=== PATIENT | male | born 1990 | race Caucasian/White ===

== ENCOUNTER 2020-12-05 03:35 | Outpatient (CLI) | payer BC, SELFPAY ==
[2020-12-05 10:25] LABS: TSH (W/Ref FT4) 1.13 uIU/mL (0.36-3.74)
== END 2020-12-05 03:36 | disposition home or self-care (01) ==
LOC: LBO 03:35
PROVIDERS: PCP Nurse Practitioner Family; Visit Provider Nurse Practitioner Family
DX: Z13.29 Encounter for screening for other suspected endocrine disorder (principal)
CPT/HCPCS: 36415; 84443

== ENCOUNTER 2021-01-14 02:50 | Outpatient (CLI) | payer BC, SELFPAY ==
[2021-01-14 11:30] LABS: Source Nasal/Nares
[2021-01-14 16:43] LABS: COVID-19 PCR Negative (Negative)
== END 2021-01-14 02:51 | disposition home or self-care (01) ==
LOC: LBO 02:50
PROVIDERS: PCP Nurse Practitioner Family; Visit Provider Surgery
DX: Z20.822 Contact with and (suspected) exposure to COVID-19 (principal); Z01.818 Encounter for other preprocedural examination
CPT/HCPCS: 87635

== ENCOUNTER 2021-01-16 08:12 | Day surgery (SDC) | payer BC, SELFPAY ==
--- NOTE | 2021-01-16 06:47 | COLE_ITS ---
Date of service: 01/16/21 Time of Service: 09:55 Colonoscopy Report Date of procedure: 01/16/21 Pre-op diagnosis general: rectal bleeding Post-op diagnosis procedure note: same (internal hemorrhoids) Procedure: Colonoscopy under sedation Surgeon: Eri Chung Anesthesia Type: General:No Airway (ASA 2/ Sondra Martines CRNA) Estimated blood loss (mL): 0 Pathology: none sent Complications: None Disposition: same day Indications: The patient is here for Colonoscopy pre-op. He has no family history of colon cancer or inflammatory bowel disease. 1-2 year history of bright red blood following bowel movements. DDX Hemorrhoids vs Inflammatory Bowel Disease. Declined rectal exam today, he also declined when he saw his PCP. He was encouraged to ensure staying hydrated and if his symptoms worsen to call this office. He will be scheduled and he will also be called if any cancellations occur between now and that time.? -Discussed colonoscopy bowel prep as well as the procedure. Discussed possible complications of the procedure to include bleeding, pain, perforation, missed small lesion/polyp, sore throat, aspiration and adverse reaction to the medications. Questions were answered to patient?s satisfaction. No guarantees were implied or given.? Prep: Miralax/Dulcolax Procedure Start Time: 09:55 Procedure End Time: 10:13 Retraction Time: 11 minutes Findings: Internal hemorrhoids Grade 2 Procedure Description: After informed consent was obtained the patient was taken to the procedure room and placed in a left decubitous position. Monitors were applied and a time out was done. The patients name, date of , procedur e, allergies to medications and metal in their body was reviewed. The patient was then sedated. Once sedated and comfortable a rectal exam was done. External exam was normal. Internal exam revealed a normal sphincter tone and no palpable masses. The prostate felt smooth. The scope was then introduced and retro-flexed. Grade 2 internal hemorrhoids were identified on retroflexion. No polyps or masses were identified on retro- flexion. The scope was then advanced to the cecum without difficulty. The ileocecal vlave and appendiceal orifice were identified. The prep was good. The scope was then slowly retracted over 11 minutes back into the rectum. There were no polyps and no diverticulosis noted. The scope was removed and the patient was woken up and taken back to Same day surgery in stable condition. The patient tolerated the procedure well and there were no immediate complications. Follow up: The patient should follow up at age 51 unless they develop changes in bowel habits or other new gastrointestinal complaints.
--- NOTE | 2021-01-16 06:48 | PDOC.DSDIS_ITS ---
Discharge Plan Disposition Patient Disposition: HOME Condition: Good Discharge Details Reason For Visit: Colonoscopy Attending Provider: Eri Chung Primary Care Provider: Moshe Kennedy Home Meds and New Rx's Prescriptions: New hydrocortisone 2.5 % cream with perineal applicator 1 applic AL QD-BID PRNQty: 30 RF: 0 Continued buspirone 10 mg tablet 10 mg PO DAILY PRN (Reason: panic attack(s)) Qty: 30 RF: 0 acetaminophen [Tylenol] 325 mg Tablet 650 mg PO ONCE PRNRF: 0 Discontinued bisacodyl [Dulcolax (bisacodyl)] 5 mg tablet,delayed release (DR/EC) 5 mg PO ONCE Qty: 4 RF: 0 polyethylene glycol 3350 17 gram/dose powder 238 g PO ONCE Qty: 238 RF: 0 Discharge Instructions Instructions: Hemorrhoids (DC) Additional Instructions: Findings: Internal hemorrhoids Follow up: As needed if your hemorrhoids continue to bleed make an appointment to see me in the office. Please call if you develop: fevers >101.5 Nausea or Vomiting Abdominal pain that is not transient Rectal bleeding that is more then a tbsp A hard abdomen and inability to pass gas DAY SURGERY UNIT POST ENDOSCOPY INSTRUCTIONS Instructions for everyone who is given Anesthesia: For your safety, please do the following for the next 24 Hours: a. Do not drive or operate dangerous equipment b. Do not drink alcohol beverages or use any recreational drugs for the first 24 hours or while taking pain medications. The medications in your body may have a reaction that can be dangerous. c. Do not make any important decisions or sign any important papers 1. Generally there are no restrictions on your activity after a day or so has gone by, but you may feel a bit fatigued for a few days. 2. After you arrive home you may have a light meal and return to a normal diet as you can tolerate it without feeling sick to your stomach. 3. After surgery, you may feel pain or discomfort. This should be only transie nt, but if it persists please contact your doctor. 4. If there are any questions regarding the findings of your procedure, please feel free to contact your doctor. 6. If you are unable to contact your doctor with a problem, contact the hospital at [phone]. 7. Continue all your regular medications unless directed otherwise. I understand the above instructions and have no questions. Signature of Patient or Responsible Adult Escort Date/Time Name of Responsible Adult Escort Signature of Nurse Date/Time Activity:: Activity as Tolerated Diet:: high fiber diet Discharge Orders Discharge Orders: Discharge Order (Routine); Ordered 01/16/21 Ordered By: Eri Chung
[2021-01-16 08:32] VITALS: BP 121/72; PULSE 86; RESP 16; TEMP 36.7; O2SAT 100
--- NOTE | 2021-01-16 08:44 | W.ANESPRE ---
General Info Date of Service Date Performed: 01/16/21 Height: 5 ft 6.5 in Weight: 72.5 kg Body Mass Index (BMI): 25.4 Surgical Procedure: Operation Date: 01/16/21 10:05 Proposed Procedures Side Surgeon p Colonoscopy Eri Chung MD Meds Allergies and Home Medications Allergies Allergy/AdvReac Type Severity Reaction Status Date / Time No Known Allergies Allergy Verified 01/16/21 08:37 Home Medication Medication Instructions Recorded buspirone 10 mg tablet 10 mg PO DAILY PRN #30 tab 12/27/20 bisacodyl 5 mg tablet,delayed 5 mg PO ONCE #4 tab 01/03/21 release polyethylene glycol 3350 17 238 g PO ONCE #238 g 01/03/21 gram/dose oral powder acetaminophen [Tylenol] 650 mg PO ONCE PRN 01/16/21 Current Visit Medications: Current Medications Generic Name Dose Route Start Last Admin Trade Name Freq PRN Reason Stop Dose Admin Hyoscyamine Sulfate 0.125 mg 01/16/21 06:49 Hyoscyamine 0.125 Mg Sl/Oral/Chew SL DIRECTED PRN Ringer's Solution 1,000 mls @ 80 mls/hr 01/16/21 06:00 IV 02/14/21 23:59 INFUSION TABATHA IV Miscellaneous Supplies 1 each 01/16/21 06:00 Iv Access IV 02/14/21 23:59 DIRECTED TABATHA Ondansetron HCl 4 mg 01/16/21 06:49 Ondansetron 4 Mg/2 Ml Vial IVP Q4H PRN PRN Nausea / Vomiting Sodium Chloride 0 ml 01/16/21 06:00 Normal Saline Flush 10 Ml Syr IV 02/14/21 23:59 PRN PRN Sodium Chloride 0 ml 01/16/21 06:00 Normal Saline 10 Ml Vial IJ 02/14/21 23:59 DIRECTED PRN Sterile Water 0 ml 01/16/21 06:00 Water,Injection,Sterile 10 Ml Vial IJ 02/14/21 23:59 DIRECTED PRN PFSH Active Problems Active Problems: Problem Status Onset Code Thyroid disorder screening Z13.29 Blood in stool K92.1 Medical History Medical History History of panic attacks Surgical History Surgical History (Updated 01/16/21 @ 08:41 by Bharati Stinson) Hx of wisdom tooth extraction Tobacco Smoking/Tobacco Use Status: Never Alcohol Alcohol Intake: current Alcohol intake frequency: holidays/special occasions only Substance Use Substance use: Never Substance use type: does not use Vital Signs and Lab Results Vital Signs Most Recent Vital Signs in EMR: Most Recent Vital Signs Temp Pulse Resp BP Pulse Ox 36.7 C 86 16 121/72 100 01/16/21 08:32 01/16/21 08:32 01/16/21 08:32 01/16/21 08:32 01/16/21 08:32 Lab Results Result Diagrams: 01/16/21 08:42 01/16/21 08:42 Blood Type / Crossmatch: No Data to Display Complete Blood Count: White Blood Count 4.77 10^3/uL (4.4-10.8) 01/16/21 08:42 01/16/21 Red Blood Count 5.31 10^6/uL (4.36-5.78) 01/16/21 08:42 01/16/21 Hemoglobin 15.9 g/dL (13.5-17.5) 01/16/21 08:42 01/16/21 Hematocrit 45.6 % (40.0-50.0) 01/16/21 08:42 01/16/21 Platelet Count 228 10^3/uL (130-400) 01/16/21 08:42 01/16/21 Complete Metabolic Panel: Sodium Level Pending 01/16/21 08:42 01/16/21 Potassium Level Pending 01/16/21 08:42 01/16/21 Chloride Level Pending 01/16/21 08:42 01/16/21 Carbon Dioxide Level Pending 01/16/21 08:42 01/16/21 Blood Urea Nitrogen Pending 01/16/21 08:42 01/16/21 Creatinine Pending 01/16/21 08:42 01/16/21 Calcium Level Pending 01/16/21 08:42 01/16/21 Glucose Level Pending 01/16/21 08:42 01/16/21 Liver Function Panel: No Data to Display Coagulation Panel: No Data to Display Cardiac Panel: No Data to Display Arterial Blood Gas: No Data to Display Venous Blood Gas: No Data to Display Pancreas Panel: No Data to Display Thyroid Panel: No Data to Display Infectious Disease: Coronavirus (COVID-19)(PCR) Negative (Negative) 01/14/21 10:48 01/14/21 Coronavirus 2019 Source Nasal/nares 01/14/21 10:48 01/14/21 Blood Cultures: No Data to Display Toxicology Panel: No Data to Display Anesthesia Assessment and Plan Anesthesia History Personal History: No History of Anesthesia Complications Family History: No Family History of Anesthesia Complications Exercise Tolerance Exercise Tolerance: Metabolic Equivalents>4 Pertinent Negatives Pertinent Negatives: No Symptoms of GERD, No Major Cardiovascular Symptoms or Complaints and No Major Pulmonary Symptoms or Complaints Cardiac & Pulmonary Exam Cardiac Exam: Normal S1/S2 Heart Sounds Pulmonary Exam: Clear Bilateral Breath Sounds Airway Exam Known Difficult Airway: No Mallampati Class: 1 Mouth Opening: Normal (> 3cm) Thyromental Distance: Greater than 3 cm Neck Range of Motion: Full ROM Neck Circumference: Normal Teeth Condition: Normal Dentition ASA Classification ASA Score: ASA 2 Emergency Case?: No NPO Status NPO Status: NPO Clears >2 hours, Solids >8 hours Anesthesia Plan Resuscitation Status: Full Code Anesthesia Technique: General Anesthesia Airway Planned: Natural Airway Monitors Used: Standard Monitors
[2021-01-16 08:50] LABS: Abs Immature Grans 0.03 10^3/uL (0.0-0.06); Absolute Basophil Count 0.03 10^3/uL (0.0-0.2); Absolute Lymphocyte Count 1.33 10^3/uL (1.2-3.4); Absolute Monocyte Count 0.47 10^3/uL (0.1-0.8); Absolute Neutrophil Count 2.71 10^3/uL (1.2-6.7); Basophils % 0.6; Eosinophils % 4.2; HCT 45.6 % (40.0-50.0); HGB 15.9 g/dL (13.5-17.5); Immature Grans % 0.6; Lymphocytes % 27.9; MCH 29.9 pg (27.0-33.0); MCHC 34.9 % (32.0-36.0); MCV 85.9 fL (80-95); MPV 8.9 fL (8.0-11.0); Monocytes % 9.9; Neutrophils % 56.8; Nucleated RBC 0 %; Platelet Count 228 10^3/uL (130-400); RBC 5.31 10^6/uL (4.36-5.78); RDW 12.4 % (11.8-14.1); RDW-SD 38.8 fL; WBC 4.77 10^3/uL (4.4-10.8)
[2021-01-16] MEDS: Lactated Ringers 1,000 ML 80 ML IV (08:59)
[2021-01-16 09:01] LABS: BUN 14 mg/dL (7-18); CREATININE 1.1 mg/dL (0.70-1.30); Calcium 9.5 mg/dL (8.5-10.1); Chloride 103 mmol/L (98-107); Glucose 91 mg/dL (74-106); Potassium 3.8 mmol/L (3.5-5.1); Sodium 140 mmol/L (136-145)
[2021-01-16 09:06] VITALS: BMI 25.4
[2021-01-16 10:20] VITALS: BP 87/53; PULSE 76; RESP 18; TEMP 36.5; O2SAT 95
--- NOTE | 2021-01-16 10:23 | W.ANESPOSTOP ---
Postoperative Evaluation Date, Time and Location Date Performed: 01/16/21 Time Performed: 10:23 Patient Location: Day Surgery Unit Vital Signs Most Recent Imported Vital Signs: Most Recent Vital Signs Temp Pulse Resp BP Pulse Ox 36.7 C 86 16 121/72 100 01/16/21 08:32 01/16/21 08:32 01/16/21 08:32 01/16/21 08:32 01/16/21 08:32 Most Recent Manually Entered Vital Signs: Adult Blood Pressure: 87/53 Heart Rate: 78 Respirations: 20 Oxygen Saturation (%): 96 Temperature (C): 36.5 C Pain Score (0-10 Scale): 0 Pain Score Most Recent Pain Score: Most Recent Pain Score Pain Level 0 01/16/21 08:32 Assessment Mental Status: Arousable with meaningful communication Airway and Respiratory Function: Patent airway with normal (patient baseline) respiratory exam Cardiovascular Function: Hemodynamically Stable Hydration Status: Adequately Hydrated Nausea & Vomiting: No Nausea or Vomiting Pain: Pt. Denies Any Pain Peripheral Nerve Block: Patient did not receive a nerve block
[2021-01-16 10:24] VITALS: BP 87/53; PULSE 78; RESP 20; TEMPC 36.5; O2SAT 96
[2021-01-16 10:48] VITALS: BP 107/71; PULSE 80; RESP 18; TEMP 36.4; O2SAT 98
== END 2021-01-16 11:37 | disposition home or self-care (01) ==
LOC: SUR 08:12
PROVIDERS: PCP Nurse Practitioner Family; Visit Provider Surgery
PROC: 0DJD8ZZ Inspection of Lower Intestinal Tract, Via Natural or Artificial Opening Endoscopic (ICD-10-PCS; CPT 45378; principal; 2021-01-16 10:00)
DX: K64.8 Other hemorrhoids (principal)
CPT/HCPCS: 45378; 36415; 80048; 85025; J2001

== ENCOUNTER 2023-05-12 11:02 | Day surgery (SDC) | payer BC, SELFPAY ==
--- NOTE | 2023-05-11 17:09 | ROE_ITS ---
Date of service: 05/12/23 Time of Service: 12:30 Operative Note Operative Note DATE OF PROCEDURE: 05/12/23 PRE-OP DIAGNOSIS: Rectal bleeding/history of hemorrhoids POST-OP DIAGNOSIS: same PROCEDURE: Banding of internal hemorrhoids x3 columns and instillation of Exparel for pain control SURGEON: Stephany Thomas ANESTHESIA TYPE: General:No Airway Refer to Anesthesia Record ESTIMATED BLOOD LOSS: 1 PATHOLOGY: none sent COMPLICATIONS: None Patient was transported to: same day Patient's condition: stable Procedure Description: After informed consent was obtained, explaining the risks and benefits of the procedure including but not limited to: Bleeding, infection, fistula or abscess, chronic pain or numbness or loss of control of the sphincter. Patient understands the bands will fall off in about 3 to 5 days and that there may be some bleeding when this occurs. The patient was taken to the procedure room and placed in a left decubitous position. Monitors were applied and a time out was done. The patients name, date of , procedure, allergies to medications and metal in their body was reviewed. The patient was then sedated. Once s edated and comfortable a rectal exam was done. External exam was normal. Internal exam revealed a normal sphincter tone and no palpable masses. The prostate normal. The scope was then introduced and retrofelexed. Grade 2 internal hemorrhoids times all 3 columns were identified. Digital anal rectal exam was performed prior to beginning this procedure. There is no signs of any active bleeding or thrombosis. Each column was grabbed with a suction supervisor product inspection and latex bands were applied in all 3 columns. Repeat visualization shows no bleeding. 10 cc of Exparel is instilled into each column for pain control. No bleeding is noted. Patient tolerated procedure well without complication and transferred to same- day surgery in stable condition The patient tolerated the procedure well and there were no immediate complications.
--- NOTE | 2023-05-11 17:10 | PDOC.DSDIS_ITS ---
Date of service: 05/12/23 Time of Service: 12:40 Discharge Plan Disposition Patient Disposition: Home Condition: Good Discharge Details Reason For Visit: Hemorrhoid banding Attending Provider: Stephany Thomas Primary Care Provider: Moshe Kennedy Home Meds and New Rx's Prescriptions: New metaxalone 800 mg tablet 800 mg PO TID PRNQty: 50 0RF Continued triamcinolone acetonide 0.1 % cream 1 applic topical BID Qty: 30 4RF acetaminophen [Tylenol] 325 mg Tablet 650 mg PO ONCE PRN Changed Fiber Supplement (inulin) 2 gram tablet,chewable 3 tab PO DAILY Qty: 0 0RF Discharge Instructions Additional Instructions: Home Care Instructions after Rectal Surgery Pain control:? Ibuprofen 600mg 6hrs (take w/ food. Do not take on an empty stomach) and Tylenol 1000mg by mouth (ibuprofen 400-600mg) every 8 hours.? Do not take if you have ulcers or sensitivity to aspirin.? Do not take Tylenol if you have hepatitis or liver failure. Alternate the Tylenol and ibuprofen.? Take pain meds continuously for the first 72hrs.? After 72hrs, you can take as needed if you are having pain.? Robaxin/metoxalone for muscle spasms/pain >7. How to prevent constipation: The first bowel movement after surgery will be painful. Do not let yourself get constipated. Stay on a stool softener for the first two weeks after surgery. ?It is recommended that you use a fiber supplement (Metamucil, Citrucel) daily (1 tablespoon in 8 oz of water). If you do not have a bowel movement daily, use Miralax. You may have bleeding or drainage after rectal surgery; especially when you move your bowels. Use a sanitary napkin to collect the discharge. If you are passing large clots or having to change the pad more than every 4 hours, call the clinic or go to the ER. You may experience spasms in the rectal muscles. This is normal after surgery and last for about two weeks. They can become more intense with bowel movements. The best remedy is to soak in a bathtub of plain warm water- no Epsom salts, essential oil or soap.? It takes about 10 minutes further the spasm to stop.? You may want to do this after BM as well. It is ok to shower. Avoid soap on the surgical area. Use a pillow to sit on. Follow a mild bland diet. Avoid alcohol, spicy food, citrus, and tomatoes. Avoid strenuous activity (running, jogging, and power walking, swimming, weight lifting) for one week. No lifting over 20 pounds for 1 week. Activity:: See above Shower/Bathe:: 24 hours Diet:: [place] diet Discharge Orders Discharge Orders: Discharge Order (Routine); Ordered 05/12/23 Ordered By: Stephany Thomas DS: Diagnosis Discharge Diagnosis (1) Anxiety: Status: Chronic (2) Bleeding grade II hemorrhoids: Status: Acute Asessment and Plan: The patient is doing well post-op from their hemorrhoid banding on the back.? They are having no nausea or vomiting. They are tolerating liquids and a snack. The pt is not having any chest pain or SOB.? Their pain is adequately controlled. They have been able to urinate.? ?HEENT:? no eye pain/drainage/redness/swelling. Mild sore throat ?Cardio- NSR, no chest pain, BP stable- see VS record ?Pulm: no sob or productive cough. No hemoptysis ?Incision- dressing is c/d/i w/ no excessive bleeding or drainage ?I discussed with the patient the findings at the time of surgery and the patient?s progress. ?We reviewed expectations at home; what the patient could expect for recovery time, and in the post-operative period.? We discussed the importance of walking to avoid blood clots and pneumonia.? We discussed and reviewed the patient's post-operative wound care and dressing needs.?? We reviewed their step-parr pain management plan, Rx called to the pharmacy of their choice.? We reviewed activity and limitations-see discharge instructions. We reviewed warning signs, and when to seek medical attention- see d/c instructions.?? Patient was given a postoperative follow-up appointment. Patient verbalized understanding of their postoperative instructions, how do to take care of themselves and their incision, and the pain management plan. Please see discharge instructions.? (3) Internal hemorrhoids with other complication: Status: Acute (4) Blood in stool: Status: Acute (5) History of panic attacks:
[2023-05-12 11:22] VITALS: BP 131/75; PULSE 78; RESP 18; TEMP 36.8; O2SAT 100
[2023-05-12] MEDS: Lactated Ringers 1,000 ML 80 ML IV (11:29)
--- NOTE | 2023-05-12 12:11 | ANES.PREOP_ITS ---
General Info Date of Service Date Performed: 05/12/23 Height: 5 ft 6 in Weight: 76.7 kg Body Mass Index (BMI): 27.3 Surgical Procedure: Operation Date: 05/12/23 12:55 Proposed Procedure Side Surgeon p Internal Hemorrhoid Banding X3 Columns Stephany Thomas DO Actual Procedure Side Surgeon p Internal Hemorrhoid Banding X3 Columns Not Applicable Stephany Thomas DO Pre-Op Diagnosis Post-Op Diagnosis Hemorrhoid banding Meds Allergies and Home Medications Allergies Allergy/AdvReac Type Severity Reaction Status Date / Time No Known Allergies Allergy Verified 05/12/23 11:26 Home Medication Medication Instructions Recorded acetaminophen 325 mg tablet 650 mg PO ONCE PRN 01/16/21 (Tylenol) triamcinolone acetonide 0.1 % 1 applic topical BID #30 grams 01/22/23 topical cream inulin-sorbitol 2 gram chewable 1 tab PO DAILY 04/23/23 tablet (Fiber Supplement (inulin)) Current Visit Medications: Current Medications Generic Name Dose Route Start Last Admin Trade Name Freq PRN Reason Stop Dose Admin Hyoscyamine Sulfate 0.125 mg 05/12/23 09:29 Hyoscyamine 0.125 Mg Sl/Oral/Chew SL 06/11/23 09:28 DIRECTED PRN Ringer's Solution 1,000 mls @ 80 mls/hr 05/12/23 06:00 05/12/23 11:29 IV 06/10/23 23:59 80 mls/hr INFUSION TABATHA Administration IV Miscellaneous Supplies 1 each 05/12/23 06:00 Iv Access IV 06/10/23 23:59 DIRECTED TABATHA Ondansetron HCl 4 mg 05/12/23 09:29 Ondansetron 4 Mg/2 Ml Vial IVP 06/11/23 09:28 Q4H PRN PRN Nausea / Vomiting Sodium Biphosphate/Sodium Phosphate 266 ml 05/12/23 06:00 Na Phosphate Enema 133 Ml Btl NC 05/12/23 23:59 PREOP TABATHA Sodium Chloride 0 ml 05/12/23 06:00 Normal Saline Flush 10 Ml Syr IV 06/10/23 23:59 PRN PRN Sodium Chloride 0 ml 05/12/23 06:00 Normal Saline 10 Ml Vial IJ 06/10/23 23:59 DIRECTED PRN Sterile Water 0 ml 05/12/23 06:00 Water,Injection,Sterile 10 Ml Vial IJ 06/10/23 23:59 DIRECTED PRN [facility] Active Problems Active Problems: Problem Status Onset Code Anxiety F41.9 Bleeding grade II hemorrhoids K64.1 Internal hemorrhoids with other complication K64.8 Thyroid disorder screening Z13.29 Blood in stool K92.1 Eczema of both hands L30.9 Medical History Medical History History of panic attacks Surgical History Surgical History History of colonoscopy (~12/2020) Hx of wisdom tooth extraction Tobacco Smoking/Tobacco Use Status: Never Alcohol Alcohol Intake: current Alcohol intake frequency: holidays/special occasions only Substance Use Substance use: Never Substance use type: does not use Details: alcohol: unknown Vital Signs and Lab Results Vital Signs Most Recent Vital Signs in EMR: Most Recent Vital Signs Temp Pulse Resp BP Pulse Ox 36.8 C 78 18 131/75 100 05/12/23 11:22 05/12/23 11:22 05/12/23 11:22 05/12/23 11:22 05/12/23 11:22 Lab Results Blood Type / Crossmatch: No Data to Display Complete Blood Count: No Data to Display Complete Metabolic Panel: No Data to Display Liver Function Panel: No Data to Display Coagulation Panel: No Data to Display Cardiac Panel: No Data to Display Arterial Blood Gas: No Data to Display Venous Blood Gas: No Data to Display Pancreas Panel: No Data to Display Thyroid Panel: No Data to Display Infectious Disease: No Data to Display Blood Cultures: No Data to Display Toxicology Panel: No Data to Display Anesthesia Assessment and Plan Anesthesia History Personal History: No History of Anesthesia Complications Family History: No Family History of Anesthesia Complications Exercise Tolerance Exercise Tolerance: Metabolic Equivalents>4 Cardiac & Pulmonary Exam Cardiac Exam: Normal S1/S2 Heart Sounds Pulmonary Exam: Clear Bilateral Breath Sounds Implantable Cardiac Device Does patient have a Pacemaker or an ICD?: No Airway Exam Known Difficult Airway: No Mallampati Class: 1 Mouth Opening: Normal (> 3cm) Thyromental Distance: Greater than 3 cm Neck Range of Motion: Full ROM Neck Circumference: Normal Teeth Condition: Normal Dentition ASA Classification ASA Score: ASA 2 Emergency Case?: No NPO Status NPO Status: NPO Clears >2 hours, Solids >8 hours Anesthesia Plan Resuscitation Status: Full Code Anesthesia Technique: General Anesthesia Airway Planned: Natural Airway Monitors Used: Standard Monitors Preoperative Comments:: 33 yo for hemorrhoid banding. Sig PMHx: denies major. never smoker, occ EtOH. Previous Anes: - colo, prop, natural airway no issues.
[2023-05-12 12:13] VITALS: BMI 27.3
[2023-05-12] MEDS: Bupivacaine LIPOSOME/PF 133 MG/10 ML VIAL IJ (12:22)
[2023-05-12 12:30] VITALS: BP 119/75; PULSE 70; RESP 18; TEMP 36.4; O2SAT 98
--- NOTE | 2023-05-12 12:49 | W.ANESPOSTOP ---
Postoperative Evaluation Date, Time and Location Date Performed: 05/12/23 Time Performed: 12:49 Patient Location: Day Surgery Unit Vital Signs Most Recent Imported Vital Signs: Most Recent Vital Signs Temp Pulse Resp BP Pulse Ox 36.4 C L 70 18 119/75 98 05/12/23 12:30 05/12/23 12:30 05/12/23 12:30 05/12/23 12:30 05/12/23 12:30 Pain Score Most Recent Pain Score: Most Recent Pain Score Pain Level 0 05/12/23 12:30 Assessment Mental Status: Awake (Alert & Oriented to Patient Baseline) Airway and Respiratory Function: Patent airway with normal (patient baseline) respiratory exam Cardiovascular Function: Hemodynamically Stable Hydration Status: Adequately Hydrated Nausea & Vomiting: No Nausea or Vomiting Pain: Pt. Denies Any Pain Peripheral Nerve Block: Patient did not receive a nerve block
[2023-05-12] MEDS: Methocarbamol 750 MG TAB PO (13:01)
[2023-05-12 13:04] VITALS: BP 122/76; PULSE 56; RESP 18; TEMP 36.6; O2SAT 100
== END 2023-05-12 13:45 | disposition home or self-care (01) ==
PROVIDERS: PCP Nurse Practitioner Family; Visit Provider Surgery
PROC: (CPT 46221; principal; 2023-05-12 12:45)
DX: K64.1 Second degree hemorrhoids (principal); F41.9 Anxiety disorder, unspecified
CPT/HCPCS: 46221; J1885; J2704

== ENCOUNTER 2023-07-14 00:51 | Emergency (ER) | payer BC, SELFPAY ==
[2023-07-14 00:54] VITALS: BP 150/84; PULSE 91; RESP 16; TEMP 36.9; O2SAT 100
--- NOTE | 2023-07-14 01:12 | W.ED.GENAD ---
Discharge Plan Disposition Patient Disposition: Home Discharge Details Chief Complaint: Laceration Clinical Impression: Laceration of right wrist Primary Care Provider: Moshe Kennedy ED Provider: Chicho Perez Home Meds and New Rx's Prescriptions: No Action triamcinolone acetonide 0.1 % ointment 1 applic topical DAILY 7 Days Qty: 80 1RF acetaminophen [Tylenol] 325 mg Tablet 650 mg PO ONCE PRN Fiber Supplement (inulin) 2 gram tablet,chewable 3 tab PO DAILY Qty: 0 0RF Discharge Instructions Instructions: Care For Your Absorbable Stitches (ED) Additional Instructions: Please keep the area clean and dry. Monitor closely for any redness, drainage or discharge. Absorbable sutures will come out on their own in 10 to 12 days. If they have not you can gently rub warm soapy water on the area to help them come off. If you come back to the emergency department here it will be free of charge for the suture removal. For long-term scar cosmesis, please make sure to avoid any sun to the area for the next year. Apply moisturizer or vitamin E to the area twice daily for the next 12 months for the best chance of wound/scar medication. Please take a daily multivitamin as well as this can help in wound healing. If you notice any worsening of your symptoms, or any new symptoms such as vomiting, diarrhea, fever, chills, shortness of breath, chest pain, numbness, weakness, or fainting , please return immediately to the emergency department for reevaluation. Please follow up with your primary care provider as soon as possible for reassessment and reevaluation. As always, it was a pleasure participating in your medical care today. Referrals: Moshe Kennedy, [employer] [Primary Care Provider] - Medical Decision Making Pleasant 33-year-old male with no significant past medical history whose tetanus was updated in 2018 presents today for right wrist laceration. He is right-hand dominant. Patient states that he was moving metal within the last hour or so when the metal slipped and hit his wrist. He denies any homicidal or suicidal ideations. He denies any numbness or tingling. No other complaints at this time. Pain is made worse with palpation. No difficulty with movement. Metal was clean otherwise. Exam demonstrates a 5 cm linear laceration on the right wrist. No vascular structures are involved, no tendon involvement. Somewhat superficial. The area was cleaned and extensively irrigated. No foreign bodies were noted. The area was sutured with 5 simple interrupted sutures. Patient tolerated this well. Dermabond was applied over top. Single 24-hour course of antibiotics will be given for infection prevention. Tetanus is up-to-date. Discussed red flags for which to return. I have extensively reviewed the treatment plan and discharge instructions with the patient. I have addressed all patient concerns at this time. The patient was made aware of what symptoms to monitor for that would warrant a return to the emergency department. Discussed the plan with the patient, they demonstrate verbal understanding and agreement with our assessment and plan at this time. The documentation in this chart was dictated using [employer] dictation software. Please excuse any dictation errors. HPI General Date/Time Provider Initiated Documentation: 07/14/23 00:52. HPI Narrative: Pleasant 33-year-old male with no significant past medical history whose tetanus was updated in 2018 presents today for right wrist laceration. He is right-hand dominant. Patient states that he was moving metal within the last hour or so when the metal slipped and hit his wrist. He denies any homicidal or suicidal ideations. He denies any numbness or tingling. No other complaints at this time. Pain is made worse with palpation. No difficulty with movement. Metal was clean otherwise. Related Data Home Medications Medication Instructions Recorded Confirmed acetaminophen 325 mg tablet 650 mg PO ONCE PRN 01/16/21 07/14/23 (Tylenol) inulin-sorbitol 2 gram chewable 3 tab PO DAILY #0 tabs 05/12/23 07/14/23 tablet (Fiber Supplement (inulin)) triamcinolone acetonide 0.1 % 1 applic topical DAILY 7 days #80 06/26/23 07/14/23 topical ointment grams Previous Rx's Medication Instructions Recorded inulin-sorbitol 2 gram chewable 3 tab PO DAILY #0 tabs 05/12/23 tablet (Fiber Supplement (inulin)) triamcinolone acetonide 0.1 % 1 applic topical DAILY 7 days #80 06/26/23 topical ointment grams Allergies Allergy/AdvReac Type Severity Reaction Status Date / Time No Known Allergies Allergy Verified 07/14/23 01:01 General Stated Complaint: Laceration SARITA: 4 Review of Systems All systems reviewed & are unremarkable except as noted in HPI and below PFSH All Active Problems Laceration of right wrist (Acute) Eczema (Acute) Anxiety (Chronic) Thyroid disorder screening (Acute) Eczema of both hands (Acute) Medical History History of panic attacks Surgical History Hemorrhoids, internal (~05/2023) Banding done in May 2023 History of colonoscopy (~12/2020) Hx of wisdom tooth extraction Social History Smoking/Tobacco Use Status: Never Smoking risk assessment performed?: Yes Alcohol Intake: current Alcohol Intake frequency: holidays/special occasions only Drug use: Never Substance use type: does not use Details: alcohol: unknown Housing: apartment Current gender identity: male Do you feel safe at home: Yes Do you feel safe in your relationship?: Yes Exam Narrative Exam Narrative: 1.Const: Well-nourished, Well-developed, appearing stated age 2.Eyes: PERRL, no conjunctival injection, and symmetrical lids. 3.ENT: Atraumatic external nose and ears. Moist MM. Neck: Symmetric, trachea midline, No thyromegaly. 4.CVS: +S1/S2, No murmurs or gallops. Peripheral pulses 2+ and equal in all extremities. Brisk capillary refill in all extremities. 5.RESP: Unlabored respiratory effort. Clear to auscultation bilaterally. No wheezes rales or rhonchi 6.GI: Soft, Nontender/Nondistended, No hepatosplenomegaly. No guarding or rebound. 7.MSK: Normocephalic/Atraumatic, Extremities w/o deformity or ttp No cyanosis or clubbing, Normal movement of all extremities Right hand: Symmetrically palpable radial and ulnar pulses. Capillary refill less than 2 seconds to all digits. Intact sensation to light touch of the radial, median and ulnar nerves demonstrated by testing in the dorsal web space of the thumb, the distal palmar aspect of the index finger, and the lateral surface of the fifth finger. 2 point discrimination intact to 5mm (up to 6mm can be normal in digits 3-5) of discrimination in the affected digit. 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 Intact recurrent median nerve as demonstrated by ability to move thumb fully through opposition, abduction and flexion. No snuffbox tenderness. 8.Skin: Warm, Dry. Patient's right wrist demonstrates a 5 cm linear laceration on the ventral aspect of the right wrist. Superficial in nature, does not go down to the tendons or ligaments. Only adipose is exposed. No active bleeding. 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 Sensation grossly intact, no focal neurologic deficits. 10.Psych: (AAO) x3. Appropriate mood and affect Course Vital Signs Vital signs: Vital Signs Temperature 36.9 C 07/14/23 00:54 Pulse 91 H 07/14/23 00:54 Respiratory Rate 16 07/14/23 00:54 Blood Pressure 150/84 H 07/14/23 00:54 Pulse Oximetry 100 07/14/23 00:54 Temperature 36.9 C 07/14/23 00:54 Temperature Source Oral 07/14/23 00:54 Pulse 91 H 07/14/23 00:54 Respiratory Rate 16 07/14/23 00:54 Respiratory Effort Normal, Non-Labored 07/14/23 01:02 Blood Pressure 150/84 H 07/14/23 00:54 Blood Pressure Position Sitting 07/14/23 00:54 Pulse Oximetry 100 07/14/23 00:54 Oxygen Delivery Method Room Air 07/14/23 00:54 Oxygen Flow Rate 0 07/14/23 00:54 Procedures Laceration Laceration 1: Site: upper extremity Side (If applicable): right Size (cm): 5 Description: linear Depth: simple, single layer Local Anesthetic: Lidocaine 1% and with Epi Amount of anesthesia used (mL): 4 Pre-repair: wound explored, irrigated extensively and deep structures intact Skin layer closed with: other (Chromic gut) Size (cm): 5-0 Number of sutures: 5 Technique: simple, interrupted
[2023-07-14] MEDS: Cephalexin 500 MG CAP, 4 CAPS/BTL PO (01:19)
== END 2023-07-14 01:21 | disposition home or self-care (01) ==
PROVIDERS: Emergency Provider Student in an Organized Health Care Education/Training Program; PCP Nurse Practitioner Family
DX: S61.511A Laceration without foreign body of right wrist, initial encounter (principal); W22.8XXA Striking against or struck by other objects, initial encounter; Y93.89 Activity, other specified
CPT/HCPCS: 12002